=== PATIENT | male | born 1995 | race Caucasian/White ===

== ENCOUNTER 2016-07-25 13:09 | Emergency (ER) | payer BC ==
[~2016-07-25] VITALS: Wt 54.5 kg
[~2016-07-25 13:09] MED LIST: HYDR-762 PO; MESA800T2 PO; ONDA4TAB35 PO; PANTOPRAZOLE; PRED20TA PO
[2016-07-25] MEDS ORDERED: morphine 4 MG/ML VIAL IV STA (14:40)
[2016-07-25] MEDS ORDERED: SOD CHLORIDE 0.9% 1,000 ML IV STA (14:40)
[2016-07-25] MEDS ORDERED: ONDANSETRON 4 MG INJ IV STA (14:40)
[2016-07-25] MEDS ORDERED: HYDROmorphONE 1 MG/ML SYG IV STA ×2 (14:42→16:05)
[2016-07-25 15:06] LABS: BASOPHILS % 0.1 % (0.0-2.0); EOSINOPHILS % 0.2 % (0.0-7.0); HEMATOCRIT 44.2 % (42.0-52.0); HEMOGLOBIN 14.7 g/dl (14.0-18.0); LYMPHOCYTES # 1.7 10^3/ul (0.8-2.9); LYMPHOCYTES % 12.1 % (15.0-51.0); MEAN CORPUSCULAR HEMOGLOBIN 29.3 pg (29.0-33.0); MEAN CORPUSCULAR HGB CONC 33.3 g/dl (32.0-37.0); MEAN CORPUSCULAR VOLUME 88.1 fl (82.0-101.0); MEAN PLATELET VOLUME 6.8 fl (7.4-10.4); MONOCYTE # 0.5 10^3/ul (0.3-0.9); MONOCYTES % 3.6 % (0.0-11.0); PLATELET COUNT 538 10^3/UL (140-440); RED BLOOD COUNT 5.02 10^6/ul (4.70-6.10); RED CELL DISTRIBUTION WIDTH 14.1 % (11.5-14.5); UNCORRECTED WBC 14.3 10^3/ul (4.8-10.8); WHITE BLOOD COUNT 14.3 10^3/ul (4.8-10.8)
[2016-07-25 15:19] LABS: ALBUMIN 3.2 g/dl (3.3-4.9)
[2016-07-25 15:20] LABS: POTASSIUM 4.4 mmol/L (3.5-5.1)
[2016-07-25 15:22] LABS: ALBUMIN/GLOBULIN RATIO 0.84; BILIRUBIN,INDIRECT 0.1 mg/dl (0-1.1); BILIRUBIN,TOTAL 0.1 mg/dl (0.2-1.3); CALCIUM 9.4 mg/dl (8.4-10.2); CREATININE 0.64 mg/dl (0.61-1.24)
[2016-07-25] MEDS ORDERED: DEXAMETHASONE 10 MG/ML 1 ML INJ IV ONE (15:30)
[2016-07-25 15:36] LABS: CONDITION 1
[2016-07-25] MEDS ORDERED: MESA800T2 PO (16:51)
[2016-07-25] MEDS ORDERED: HYDR-902 PO (16:51)
[2016-07-25] MEDS ORDERED: PRED20TA PO (16:51)
--- NOTE | 2016-07-25 16:54 | ERD ---
ER Documentation Chief Complaint Date/Time DATE: 07/25/16 TIME: 16:52 Chief Complaint ABD PAIN WITH NAUSEA AND VOMITING FOR THE PAST 2 MOS. HPI This 28-year-old male presents with a history of Crohn's disease. He is complaining of nausea and vomiting abdominal pain worsening of the last 6 months associated with a significant weight loss. Gives a history of being managed with Remicade in the past but lost insurance to becoming an adult. He does have gastroenterology follow-up with a recent visit and a colonoscopy scheduled. They have discussed possible Humira as a treatment option but he has not started it yet. Is here for severe abdominal pain and persistent vomiting diarrhea and concern about weight loss. Denies any blood in the vomit or diarrhea. ROS All systems reviewed and are negative except as per history of present illness. Medications Home Meds Active Scripts Ondansetron (Ondansetron Odt) 8 Mg Tab.rapdis, 8 MG PO Q6H Y for NAUSEA AND/OR VOMITING, #20 TAB Prov:URIEL LEONG MD 07/25/16 Prednisone* (Prednisone*) 20 Mg Tab, 40 MG PO DAILY for 10 Days, #15 TAB 40 mg by mouth for 5 days then 20 mg by mouth for 5 days. Prov:URIEL LEONG MD 07/25/16 Mesalamine* (Asacol HD) 800 Mg Tablet., 1800 MG PO TID, #60 TAB Prov:URIEL LEONG MD 07/25/16 Hydrocodone/Acetaminophen ([place] 10-325 Tablet) 1 Each Tablet, 1 TAB PO Q6H Y for PAIN, #15 TAB Prov:URIEL LEONG MD 07/25/16 Mesalamine* (Asacol HD) 800 Mg Tablet., 1800 MG PO TID for 30 Days, TAB Prov:ESPERANZA WATKINS 01/23/16 Ondansetron Hcl* (Zofran* ODT) 4 mg -ODT Tab.disper, 4 MG PO Q4H Y for NAUSEA AND OR VOMITING, #14 TAB Prov:ESPERANZA WATKINS 01/23/16 Hydrocodone Bit-Acetaminophen* ([place]*) 10-325 Mg Tablet, 1 TAB PO Q4H Y for PAIN, #20 TAB Prov:ESPERANZA WATKINS 01/23/16 Prednisone* (Prednisone*) 20 Mg Tab, 20 MG PO BID for 5 Days, TAB Prov:ESPERANZA WATKINS 01/23/16 Reported Medications [Pantoprazole] No Conflict Check 11/17/12 Allergies Allergies: Coded Allergies: No Known Allergy (Unverified , 07/25/16) PMhx/Soc Medical and Surgical Hx: pt denies Surgical Hx History of Surgery: No Anesthesia Reaction: No Hx Neurological Disorder: No Hx Respiratory Disorders: No Hx Cardiac Disorders: No Hx Psychiatric Problems: No Hx Miscellaneous Medical Probl: Yes (CROHN'S DISEASE) Hx Alcohol Use: Yes (socially) Hx Substance Use: Yes (marijuana daily) Hx Tobacco Use: Yes (quit 2 weeks ago) Smoking Status: Current some day smoker Physical Exam Vitals Vital Signs Date Time Temp Pulse Resp B/P Pulse Ox O2 Delivery O2 Flow Rate FiO2 07/25/16 13:14 98.5 90 20 121/57 100 Physical Exam Const: [] Uncomfortable notable signs of chronic weight loss per Head: Atraumatic Eyes: Normal Conjunctiva ENT: Normal External Ears, Nose and Mouth. Neck: Full range of motion..~ No meningismus. Resp: Clear to auscultation bilaterally Cardio: Regular rate and rhythm, no murmurs Abd: Soft, generalized tenderness without rebound or masses., non distended. Normal bowel sounds Skin: No petechiae or rashes Back: No midline or flank tenderness Ext: No cyanosis, or edema Neur: Awake and alert Psych: Normal Mood and Affect Result Diagram: 07/25/16 1445 07/25/16 1445 Results 24 hrs Laboratory Tests Test 07/25/16 14:45 Alanine Aminotransferase (ALT/SGPT) 22IU/L Albumin 3.2g/dl Albumin/Globulin Ratio 0.84 Alkaline Phosphatase 92IU/L Anion Gap 17 Aspartate Amino Transf (AST/SGOT) 15IU/L Basophils # 0.010^3/ul Basophils % 0.1% Blood Morphology Comment Blood Urea Nitrogen 5mg/dl Calcium Level 9.4mg/dl Carbon Dioxide Level 27mmol/L Chloride Level 97mmol/L Creatinine 0.64mg/dl Direct Bilirubin 0.00mg/dl Eosinophils # 0.010^3/ul Eosinophils % 0.2% Globulin 3.80g/dl Glucose Level 96mg/dl Hematocrit 44.2% Hemoglobin 14.7g/dl Indirect Bilirubin 0.1mg/dl Lipase 44U/L Lymphocytes # 1.710^3/ul Lymphocytes % 12.1% Mean Corpuscular Hemoglobin 29.3pg Mean Corpuscular Hemoglobin Concent 33.3g/dl Mean Corpuscular Volume 88.1fl Mean Platelet Volume 6.8fl Monocytes # 0.510^3/ul Monocytes % 3.6% Neutrophils # 12.010^3/ul Neutrophils % 84.0% Nucleated Red Blood Cells # 0.010^3/ul Nucleated Red Blood Cells % 0.0/100WBC Platelet Count 99314^3/UL Potassium Level 4.4mmol/L Red Blood Count 5.0210^6/ul Red Cell Distribution Width 14.1% Sodium Level 137mmol/L Total Bilirubin 0.1mg/dl Total Protein 7.0g/dl White Blood Count 14.310^3/ul Current Medications Medications (Trade) Dose Ordered Sig/Alina Route PRN Reason Start Time Stop Time Status Last Admin Dose Admin Sodium Chloride (NS) 1,000 ml @ 1,000 mls/hr Q1H STAT IV 07/25/16 14:40 07/25/16 15:39 07/25/16 15:00 Morphine Sulfate (morphine) 4 mg ONCE STAT IV 07/25/16 14:40 07/25/16 14:44 DC Ondansetron HCl (Zofran Inj) 4 mg ONCE STAT IV 07/25/16 14:40 07/25/16 14:41 07/25/16 15:00 Hydromorphone HCl (Dilaudid) 1 mg ONCE STAT IV 07/25/16 14:42 07/25/16 14:43 07/25/16 15:00 Dexamethasone (Decadron) 10 mg ONCE ONCE IV 07/25/16 15:30 07/25/16 15:31 07/25/16 15:41 Hydromorphone HCl (Dilaudid) 1 mg ONCE STAT IV 07/25/16 16:05 07/25/16 16:06 07/25/16 16:10 Procedures/MDM IV obtained. Patient was given 1 L normal saline IV. Patient was given Zofran 4 mg IV and Dilaudid 1 mg IV 2 over prolonged ED course. Patient is a CBC of 14.3 and platelet count 538. CMP shows no acute abnormalities and lipase is normal. Patient had pain control after observation treatment. Patient had received CT scan for previous visit which showed no acute abnormalities. Given the chronicity of symptoms patient shows no signs to suggest abscess, or obstruction. Patient presents with an unfortunate history of Crohn's disease with approximately 30 kg weight loss since stopping Remicade due to insurance change. Patient is advised to continue follow-up with gastroenterology return for blood, fevers, intractable vomiting, worsening symptoms. Signs or symptoms currently not suggestive of appendicitis, acute abdomen, obstruction. There is no evidence of laboratory evidence of electrolyte abnormalities due to chronic vomiting or diarrhea although patient does have weight loss but appears appropriate for outpatient management with appropriate follow-up. Departure Diagnosis: Primary Impression: Crohns disease Gastrointestinal tract location: unspecified location Digestive disease complication type: unspecified complication Qualified Code: K50.919 - Crohn' s disease with complication, unspecified gastrointestinal tract location Additional Impression: Abdominal pain Abdominal location: generalized Qualified Code: R10.84 - Generalized abdominal pain Condition: Stable Patient Instructions: Abdominal Pain, Crohn's Disease Additional Instructions: See gastroenterology for further evaluation and treatment. Recommend Ensure at home for nutrition. Recheck for fevers, blood, new or worsening symptoms URIEL LEONG MD Jul 25, 2016 16:54
[2016-07-25] MEDS ORDERED: ONDA8TAB14 PO (16:55)
[2016-07-25 17:34] VITALS: BP 128/78; PULSE 78; RESP 20
== END 2016-07-25 17:35 | disposition home or self-care (01) ==
LOC: FTE 13:09
DX: K50.919 Crohn's disease, unspecified, with unspecified complications (principal); F17.210 Nicotine dependence, cigarettes, uncomplicated; R10.84 Generalized abdominal pain
CPT/HCPCS: 80053; 83690; 85025; 96374; 96375; 96376; J1100; J1170; J2405; J7030; Z7502

== ENCOUNTER 2016-08-05 00:22 | Emergency (ER) | payer BC ==
[~2016-08-05] VITALS: Ht 180.3 cm; Wt 64.0 kg
[~2016-08-05 00:22] MED LIST changes: +HYDR-902 PO; +ONDA8TAB14 PO
[2016-08-05 00:37] VITALS: Ht 180.3 cm; Wt 64.0 kg
[2016-08-05] MEDS ORDERED: ONDANSETRON 4 MG INJ IV STA (02:07)
[2016-08-05] MEDS ORDERED: SOD CHLORIDE 0.9% 500 ML IV STA (02:07)
[2016-08-05] MEDS ORDERED: HYDROmorphONE 1 MG/ML SYG IV STA ×2 (02:07→04:23)
--- NOTE | 2016-08-05 02:28 | RADRPT ---
PROCEDURE: Portable chest x-ray. CLINICAL INDICATION: Abdominal pain. TECHNIQUE: Portable AP view of the chest. COMPARISON: None. FINDINGS: There is minimal bibasilar atelectasis. No pulmonary edema or conolidation is identified. The card iac silhouette is magnified. No pleural effusion is seen. There is no pneumothorax. IMPRESSION: 1. No evidence of acute cardiopulmonary disease. RPTAT: HTAR .Kirill Barahona MD, MD Date Time Electronically viewed and signed by .Kirill Barahnoa MD, MD on 08/05/2016 02:28 .R/
[2016-08-05] MEDS ORDERED: DEXAMETHASONE 10 MG/ML 1 ML INJ IV ONE (02:30)
[2016-08-05 02:49] LABS: BASOPHILS % 0.3 % (0.0-2.0); EOSINOPHILS # 0.1 10^3/ul (0.0-0.5); EOSINOPHILS % 1.1 % (0.0-7.0); HEMATOCRIT 33.5 % (42.0-52.0); HEMOGLOBIN 11.2 g/dl (14.0-18.0); LYMPHOCYTES % 25.6 % (15.0-51.0); MEAN CORPUSCULAR HEMOGLOBIN 28.9 pg (29.0-33.0); MEAN CORPUSCULAR HGB CONC 33.4 g/dl (32.0-37.0); MEAN CORPUSCULAR VOLUME 86.4 fl (82.0-101.0); MEAN PLATELET VOLUME 7.2 fl (7.4-10.4); MONOCYTE # 0.8 10^3/ul (0.3-0.9); NEUTROPHIL # 7.8 10^3/ul (1.6-7.5); PLATELET COUNT 528 10^3/UL (140-440); RED BLOOD COUNT 3.87 10^6/ul (4.70-6.10); RED CELL DISTRIBUTION WIDTH 14.1 % (11.5-14.5); UNCORRECTED WBC 11.8 10^3/ul (4.8-10.8); WHITE BLOOD COUNT 11.8 10^3/ul (4.8-10.8)
[2016-08-05 02:51] LABS: CONDITION 1
[2016-08-05 02:59] LABS: ALBUMIN 2.7 g/dl (3.3-4.9)
[2016-08-05 03:00] LABS: CHLORIDE 103 mmol/L (97-110); POTASSIUM 4.2 mmol/L (3.5-5.1); SODIUM 140 mmol/L (135-144)
[2016-08-05 03:02] LABS: ANION GAP 13 (8-16); ASPARTATE AMINO TRANSFERASE 43 IU/L (15-46); CARBON DIOXIDE 28 mmol/L (21-31); CREATININE 0.52 mg/dl (0.61-1.24)
[2016-08-05 03:03] LABS: ALANINE AMINOTRANSFERASE 75 IU/L (13-69); ALKALINE PHOSPHATASE 72 IU/L (42-121); BLOOD UREA NITROGEN 11 mg/dl (7-20); CALCIUM 8.5 mg/dl (8.4-10.2); GLUCOSE 106 mg/dl (70-220); TOTAL PROTEIN 5.7 g/dl (6.1-8.1)
[2016-08-05 03:11] LABS: B-TYPE NATRIURETIC PEPTIDE 38 PG/ML (0-125)
[2016-08-05 03:15] LABS: TROPONIN-I < 0.012 ng/ml (0.00-0.12)
--- NOTE | 2016-08-05 04:03 | ERD ---
ER Documentation Chief Complaint Date/Time DATE: 08/05/16 TIME: 04:02 Chief Complaint pt c/o crohn's pain and bilateral LE swelling HPI This is 10 history of Crohn's disease and is having a Crohn's flare. Pain is mild to moderate intensity. Patient is not on any immunomodulators at home. Patient also complains of bilateral lower extremity mild edema that is noticed since his Michael started flaring up. No fevers no chills. No blood in stool. ROS All systems reviewed and are negative except as per history of present illness. Medications Home Meds Active Scripts Ondansetron (Ondansetron Odt) 8 Mg Tab.rapdis, 8 MG PO Q6H Y for NAUSEA AND/OR VOMITING, #20 TAB Prov:URIEL LEONG MD 07/25/16 Prednisone* (Prednisone*) 20 Mg Tab, 40 MG PO DAILY for 10 Days, #15 TAB 40 mg by mouth for 5 days then 20 mg by mouth for 5 days. Prov:URIEL LEONG MD 07/25/16 Mesalamine* (Asacol HD) 800 Mg Tablet., 1800 MG PO TID, #60 TAB Prov:URIEL LEONG MD 07/25/16 Hydrocodone/Acetaminophen ([place] 10-325 Tablet) 1 Each Tablet, 1 TAB PO Q6H Y for PAIN, #15 TAB Prov:URIEL LEONG MD 07/25/16 Mesalamine* (Asacol HD) 800 Mg Tablet., 1800 MG PO TID for 30 Days, TAB Prov:ESPERANZA WATKINS 01/23/16 Ondansetron Hcl* (Zofran* ODT) 4 mg -ODT Tab.disper, 4 MG PO Q4H Y for NAUSEA AND OR VOMITING, #14 TAB Prov:ESPERANZA WATKINS 01/23/16 Hydrocodone Bit-Acetaminophen* ([place]*) 10-325 Mg Tablet, 1 TAB PO Q4H Y for PAIN, #20 TAB Prov:ESPERANZA WATKINS 01/23/16 Prednisone* (Prednisone*) 20 Mg Tab, 20 MG PO BID for 5 Days, TAB Prov:ESPERANZA WATKINS 01/23/16 Reported Medications [Pantoprazole] No Conflict Check 11/17/12 Allergies Allergies: Coded Allergies: No Known Allergy (Unverified , 07/25/16) PMhx/Soc History of Surgery: No Anesthesia Reaction: No Hx Neurological Disorder: No Hx Respiratory Disorders: No Hx Cardiac Disorders: No Hx Psychiatric Problems: No Hx Miscellaneous Medical Probl: Yes (CROHN'S DISEASE) Hx Alcohol Use: Yes (socially) Hx Substance Use: Yes (marijuana daily) Hx Tobacco Use: Yes (quit 2 weeks ago) Physical Exam Vitals Vital Signs Date Time Temp Pulse Resp B/P Pulse Ox O2 Delivery O2 Flow Rate FiO2 08/05/16 00:37 98.5 105 20 115/53 98 Physical Exam Const: [] Head: Atraumatic Eyes: Normal Conjunctiva ENT: Normal External Ears, Nose and Mouth. Neck: Full range of motion..~ No meningismus. Resp: Clear to auscultation bilaterally Cardio: Regular rate and rhythm, no murmurs Abd: Soft, non tender, non distended. Normal bowel sounds Skin: No petechiae or rashes Back: No midline or flank tenderness Ext: No cyanosis, or edema Neur: Awake and alert Psych: Normal Mood and Affect Result Diagram: 08/05/16 0200 08/05/16 0200 Results 24 hrs Laboratory Tests Test 08/05/16 02:00 Alanine Aminotransferase (ALT/SGPT) 75IU/L Albumin 2.7g/dl Albumin/Globulin Ratio 0.90 Alkaline Phosphatase 72IU/L Anion Gap 13 Aspartate Amino Transf (AST/SGOT) 43IU/L B-Type Natriuretic Peptide 38PG/ML Basophils # 0.010^3/ul Basophils % 0.3% Blood Morphology Comment Blood Urea Nitrogen 11mg/dl Calcium Level 8.5mg/dl Carbon Dioxide Level 28mmol/L Chloride Level 103mmol/L Creatinine 0.52mg/dl Direct Bilirubin 0.00mg/dl Eosinophils # 0.110^3/ul Eosinophils % 1.1% Globulin 3.00g/dl Glucose Level 106mg/dl Hematocrit 33.5% Hemoglobin 11.2g/dl Indirect Bilirubin 0.0mg/dl Lipase 137U/L Lymphocytes # 3.010^3/ul Lymphocytes % 25.6% Mean Corpuscular Hemoglobin 28.9pg Mean Corpuscular Hemoglobin Concent 33.4g/dl Mean Corpuscular Volume 86.4fl Mean Platelet Volume 7.2fl Monocytes # 0.810^3/ul Monocytes % 7.0% Neutrophils # 7.810^3/ul Neutrophils % 66.0% Nucleated Red Blood Cells # 0.010^3/ul Nucleated Red Blood Cells % 0.0/100WBC Platelet Count 59148^3/UL Potassium Level 4.2mmol/L Red Blood Count 3.8710^6/ul Red Cell Distribution Width 14.1% Sodium Level 140mmol/L Total Bilirubin 0.0mg/dl Total Protein 5.7g/dl Troponin I < 0.012ng/ml White Blood Count 11.810^3/ul Current Medications Medications (Trade) Dose Ordered Sig/Alina Route PRN Reason Start Time Stop Time Status Last Admin Dose Admin Sodium Chloride (NS) 500 ml @ 500 mls/hr Q1H STAT IV 08/05/16 02:07 08/05/16 03:06 DC 08/05/16 02:17 Hydromorphone HCl (Dilaudid) 1 mg ONCE STAT IV 08/05/16 02:07 08/05/16 02:09 DC 08/05/16 02:18 Ondansetron HCl (Zofran Inj) 4 mg ONCE STAT IV 08/05/16 02:07 08/05/16 02:09 DC 08/05/16 02:17 Dexamethasone (Decadron) 10 mg ONCE ONCE IV 08/05/16 02:30 08/05/16 02:31 DC 08/05/16 02:28 Procedures/MDM Medical decision-makin20 years old with acute Crohn's flare. Lower extremity edema shows no evidence of congestive heart failure. At this point is feeling much better. Patient will be discharged home. Follow-up in 8 hours with abdominal exams. Follow-up with GI as an outpatient. Departure Diagnosis: Primary Impression: Abdominal pain Abdominal location: generalized Qualified Code: R10.84 - Generalized abdominal pain Condition: Stable ESPERANZA WATKINS Aug 05, 2016 04:02
[2016-08-05] MEDS ORDERED: HYDR-906 PO (04:13)
[2016-08-05] MEDS ORDERED: MESA800T2 PO (04:13)
[2016-08-05 04:40] VITALS: BP 112/65; PULSE 102; RESP 20; TEMP 98.7
== END 2016-08-05 04:50 | disposition home or self-care (01) ==
LOC: E/R 00:22
DX: R10.84 Generalized abdominal pain (principal); R11.2 Nausea with vomiting, unspecified; Z87.891 Personal history of nicotine dependence
CPT/HCPCS: 36415; 71010; 80053; 83690; 83880; 84484; 85025; 93005; 96374; 96375; 96376; J1100; J1170; J2405; J7040; Z7502

== ENCOUNTER 2016-08-12 13:32 | Day surgery (SDC) | payer BC ==
[~2016-08-12] VITALS: Ht 180.3 cm; Wt 63.4 kg
[~2016-08-12 13:32] MED LIST changes: +HYDR-906 PO
[2016-08-12 14:15] VITALS: Ht 180.3 cm; Wt 63.4 kg
[2016-08-12 14:20] VITALS: BP 106/61; PULSE 105; RESP 18
[2016-08-12] MEDS ORDERED: MIDAZOLAM 1 MG/ML 2 ML INJ ONE ×2 (14:21)
[2016-08-12] MEDS ORDERED: FENTAnyl 50 MCG/ML VIAL ONE (14:21)
[2016-08-12] MEDS ORDERED: PROPOFOL 20 ML ONE (14:21)
[2016-08-12 15:50] VITALS: BP 109/59; PULSE 84; RESP 16
--- NOTE | 2016-08-12 16:29 | GILP ---
DATE OF PROCEDURE: 08/12/2016 DATE: 08/12/2016. PROCEDURE PERFORMED: Colonoscopy with biopsies. Enteroscopy with biopsies. BRIEF HISTORY AND INDICATIONS: The patient is here for evaluation of history of Crohn's disease. O ff biologicals for several months and noncompliant with steroid regimen. PREMEDICATION: Monitored anesthesia care by anesthesiologist. SURGEON: Jen Gan MD INSTRUMENT USED: Olympus colonoscope. PREPARATION: Was adequate. TECHNIQUE: After informed consent, with the patient/relatives understanding the procedure, its indic ations potential risks and complications, including but not limited to: allergic reaction, bleeding, perforation, infection, missed lesions and after all pertinent questions were answered to the patie nt's satisfaction, the patient/relatives signed the witnessed informed consent. Following this, premedication was administered slowly IV push by under careful cardiovascular and re spiratory monitoring with pulse oximetry, automatic blood pressure and front desk monitor. Once the sedativ e effect was achieved, the patient was placed in the left lateral decubitus position, digital rectal examination was performed. The colonoscope was then introduced and advanced under visual control th roughout all segments of the colon including: the rectum, sigmoid, descending colon, splenic flexure , transverse colon, hepatic flexure, ascending colon and finally reaching the cecum which was clearl y identified by transillumination, finger indentation and the ileocecal valve. Careful examination o f the mucosa of the lower gastrointestinal tract both on insertion as well as withdrawal of the inst rument disclosed the following findings: RECTAL: There is decreased tone in the anorectal sphincter. There is no perianal or other perianal pathology. Colonic Mucosa: The colonic mucosa is remarkable for the severe serpiginous and coalescence ulcerat ions throughout the colon. The rectum was spared and there are several segments that showed no infl ammatory changes. The ileocecal valve was clearly identified. Terminal ileum was entered and there is erythema and ed magdalena of the mucosa as well as superficial ulcerations in the terminal ileum as well. Biopsies were o btained at terminal ileum on withdrawal of the instrument of the ascending colon, transverse colon, descending colon, sigmoid colon and finally area of the rectum. Moderate sized internal hemorrhoids are present. The instrument was then withdrawn, the patient tolerated the procedure well and was transferred out of the Endoscopy Suite awake and in good condition to continue recovery under observation. IMPRESSION: 1. Severe active Crohn's colitis and ileitis. Biopsies obtained. 2. Moderate size internal hemorrhoids. PLAN: The patient should be treated with prednisone. However, his noncompliance could raise signif icant concerns about the ability to control his disease. Pathology will be reviewed as soon as it i s available. Dictated By: JEN GAN MS/TARUN Conf#: [id number] DID#: [id number]
--- NOTE | 2016-08-12 16:55 | GILP ---
DATE OF PROCEDURE: 08/12/2016 NAME OF PROCEDURE: Esophagogastroduodenoscopy with biopsies. SURGEON: Jen Gan MD. PREOPERATIVE DIAGNOSIS: POSTOPERATIVE DIAGNOSIS: DESCRIPTION OF PROCEDURE: BRIEF HISTORY AND INDICATIONS: The patient is being evaluated for Crohn's disease, abdominal pain a nd significant weight loss. PREMEDICATION: Monitored anesthesia care by anesthesiologist. INSTRUMENT USED: Olympus panendoscope. TECHNIQUE: After informed consent, with the patient/relatives understanding the procedure, its indic ations, potential risks and complications, including but not limited to: allergic reaction, bleeding , perforation or infection, and after all pertinent questions were answered to the patients satisfac tion, the patient/relatives signed witnessed informed consent. Following this, premedication was administered slowly IV push under careful cardiovascular and respi ratory monitoring with pulse oximetry, automatic blood pressure and court monitor. Once the sedative effect was achieved the patient was place in the left lateral decubitus, the panen doscope was introduced and advanced under visual control. Careful examination of the upper gastrointestinal tract, both on insertion as well as withdrawal of the instrument disclosed the following findings: ESOPHAGUS: The distal esophagus shows 2 small papillomas. Biopsies were obtained. Otherwise, the m ucosa appears unremarkable. STOMACH: Upon entrance to the stomach, air was insufflated, the gastric castaneda distended normally. T here was severe erythema and edema of the mucosa throughout the stomach. Biopsies were obtained to rule out H. pylori infection. There was some nodularity in the antrum, there was also biopsied. PYLORUS: The pylorus appears patent and within normal limits. DUODENUM: The duodenal bulb and second and third portion of the duodenum appeared unremarkable. Bi opsies were obtained randomly. The instrument was then withdrawn, the patient tolerated the procedure well and was transfer out of the endoscopy suite awake, and in good condition to continue recovery under observation IMPRESSION: 1. Esophageal papillomas. Biopsies obtained. 2. Severe gastritis, rule out Helicobacter pylori infection. 3. Normal duodenal mucosa. Biopsies were obtained. PLAN: Omeprazole 40 mg daily. Further recommendations will depend on patient's clinical course as w ell as review of biopsies. Dictated By: JEN GAN MS/NTS Conf#: [id number] DID#: [id number] CC: Jen Gan;*EndCC*
== END 2016-08-12 16:10 | disposition home or self-care (01) ==
LOC: GIL 13:32
PROVIDERS: ATTEND Internal Medicine Gastroenterology
DX: K20.9 Esophagitis, unspecified (principal); K29.50 Unspecified chronic gastritis without bleeding; K52.89 Other specified noninfective gastroenteritis and colitis; K64.8 Other hemorrhoids; J45.909 Unspecified asthma, uncomplicated
CPT/HCPCS: 43239; 45380; 88305; 88312; 88313; J2250; J3010; Z7610

== ENCOUNTER 2016-09-25 22:48 | Emergency (ER) | payer SELFPAY ==
[~2016-09-25] VITALS: Ht 180.3 cm; Wt 73.0 kg
[2016-09-25 22:49] VITALS: Ht 180.3 cm; Wt 73.0 kg
== END 2016-09-25 23:00 | disposition left against medical advice (07) ==
LOC: E/R 22:48
DX: Z53.21 Procedure and treatment not carried out due to patient leaving prior to being seen by health care provider (principal)

== ENCOUNTER 2017-10-10 17:18 | Emergency (ER) | END 2017-10-10 20:57 | disposition home or self-care (01) ==